=== PATIENT | male | born 2000 | race African-American/Black ===

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

== ENCOUNTER 2022-01-17 20:38 | Emergency (ER) | payer SELFPAY ==
[~2022-01-17] VITALS: Ht 180.3 cm; Wt 84.0 kg
[~2022-01-17 20:38] MED LIST changes: +HYDR-3164 PO; +ORPH100T PO
[2022-01-17 21:22] LABS: INFLUENZA A PATIENT NEGATIVE (NEGATIVE); INFLUENZA B PATIENT NEGATIVE (NEGATIVE)
[2022-01-17 22:19] VITALS: BP 135/79
[2022-01-17] MEDS ORDERED: PSEU30TA77 PO (22:25)
--- NOTE | 2022-01-17 22:26 | PHYS DOC ---
Past Medical History Past Medical History: No Pertinent History Past Surgical History: No Surgical History Smoking Status: Never Smoker Alcohol Use: None Drug Use: None General Adult EDM: Chief Complaint: FLU SYMPTOM HPI: HPI: 21-year-old -N[place]ian male with no significant past medical history, presents the ED with complaints of nasal congestion, cough, red eyes, sinus pressure, fatigue and lack of taste or smell for the past 2 days stating his sister tested positive for Covid and he lives with her. Pt states "I just can't breath, my nose is clogged up." Reports he smokes hookah weekly. No history of tobacco use or underlying lung disease. Is not vaccinated for Covid. Works at [employer] and is requesting a covid test. Pt asks for a medicine for his nasal congestion. Review of Systems: Review of Systems: Constitutional: Denies fever or chills. [] Eyes: Denies change in visual acuity or eye discharge HENT: Denies rhinorrhea or sore throat. [] Respiratory: Denies hemoptysis or shortness of breath. [] Cardiovascular: Denies chest pain or edema. [] GI: Denies nausea or vomiting Musculoskeletal: Denies back pain or joint pain. [] Integument: Denies rash or diaphoresis Neurologic: Denies headache, focal weakness or sensory changes. [] Endocrine: Denies polyuria or polydipsia. [] Lymphatic: Denies swollen glands. [] Psychiatric: Denies depression or anxiety. [] Heart Score: C/O Chest Pain: No Risk Factors: Risk Factors: DM, Current or recent (<one month) smoker, HTN, HLP, family history of CAD, obesity. Risk Scores: Score 0 - 3: 2.5% MACE over next 6 weeks - Discharge Home Score 4 - 6: 20.3% MACE over next 6 weeks - Admit for Clinical Observation Score 7 - 10: 72.7% MACE over next 6 weeks - Early Invasive Strategies Allergies: Allergies: Allergies Coded Allergies Type Severity Reaction Last Updated Verified No Known Drug Allergies 10/13/16 No Physical Exam: PE: Constitutional: Well developed, well nourished, no acute distress, non-toxic appearance. HENT: Normocephalic, atraumatic, no pharyngeal erythema or exudates, moist mucous membranes Eyes: EOMI, conjunctiva with mild injection, no discharge. Neck: Normal range of motion, supple, no nuchal rigidity or meningismus Cardiovascular: S1/2 present, regular rhythm Lungs & Thorax: Speaking in full sentences, bilateral equal chest rise, no tachypnea or increased work of breathing, mild nasal voice Abdomen: soft, no tenderness, Skin: Warm, dry, no erythema, no rash. [] Extremities: No tenderness, no cyanosis, no lower extremity edema Neurologic: Alert and oriented X 3, normal motor function, normal sensory function, no focal deficits noted. [] Psychologic: Affect normal, judgement normal, mood normal. [] Current Patient Data: Labs: Laboratory Tests Test 01/17/22 21:00 Influenza Type A Antigen Negative (NEGATIVE) Influenza Type B Antigen Negative (NEGATIVE) SARS-CoV-2 Antigen (Rapid) Negative (NEGATIVE) Vital Signs: Vital Signs Date Time Temp Pulse Resp B/P (MAP) Pulse Ox O2 Delivery O2 Flow Rate FiO2 01/17/22 21:27 68 18 141/70 (93) 99 Room Air 01/17/22 20:53 98.9 98.9 EKG: EKG: [] Radiology/Procedures: Radiology/Procedures: [] Course & Med Decision Making: Course & Med Decision Making Pertinent Labs and Imaging studies reviewed. (See chart for details) COVID-19 CRITERIA: The patient was evaluated during the global COVID-19 pandemic, and that diagnosis was suspected/considered upon their initial presentation. Their evaluation, treatment and testing was consistent with current guidelines for patients who present with complaints or symptoms that may be related to COVID-19. Concern for URI/acute sinusitis after recent COVID-19 exposure. Rapid Covid and influenza negative. Patient hemodynamically stable, speaking in full sentences, not requiring any supplemental oxygen. Was given quarantine instructions. Will prescribe Sudafed for no more than 3 days, patient warned of rebound congestion and inability to sleep with this medication. Will discharge home with strict ED return precautions were given for increased work of breathing, chest pain, shortness of breath or neurologic deficits. Encouraged urgent outpatient follow-up with PMD for reevaluation and routine care. Life- threatening processes were considered but are low suspicion at this time, given history, physical exam and ED workup. Pt was educated on all prescription medications and adverse effects. All patient's questions were answered and pt was stable at time of discharge. Life/limb-threatening differential includes but is not limited to, airway emergency or respiratory distress/ARDS or fatigue or head or neck swelling, toxidrome, sepsis/shock, angioedema, anaphylaxis, congestive heart failure, myocarditis, acute myocardial infarction, dysrhythmias, cardiomyopathy, venous thromboembolism, pulmonary emboli, acute necrotizing hemorrhagic encephalopathy ,cerebral venous thrombosis, meningitis, encephalitis or CVA. I have spoken with the patient and/or caregivers. I explained the patient's condition, diagnoses and treatment plan based on the information available to me at this time. I have answered the patient and/or caregiver's questions and addressed any concerns. The patient and/or caregivers have a good understanding of patient's diagnosis, condition and treatment plan as can be expected at this point. Vital signs have been stable. Patient's condition is stable and appropriate for discharge from the emergency department. Patient will pursue further outpatient evaluation with primary care physician or other designated or consulting physician as outlined in the discharge instructions. The patient and/or caregivers are agreeable to this plan of care and follow-up instructions have been explained in detail. The patient and/or caregivers have received these instructions in written form and have expressed an understanding of the discharge instructions. The patient and/or caregivers are aware that any significant change of condition or worsening of symptoms should prompt immediate return to this or the closest emergency department or call to 911. Shawna Disclaimer: Shawna Disclaimer: This electronic medical record was generated, in whole or in part, using a voice recognition dictation system. Departure Departure Impression: Primary Impression: Person under investigation for COVID-19 Additional Impression: Acute sinusitis Disposition: HOME / SELF CARE / HOMELESS Condition: STABLE Referrals: UNKNOWN PCP NAME (PCP) Follow-up with your primary care physician in 24 to 48 hours OR FOLLOW UP WITH FAMILY MEDICINE: [address] [place] [address] Patient Instructions: Sinusitis Additional Instructions: You have been tested for or diagnosed with COVID-19. It is an infection caused by a new type of coronavirus. COVID-19 will cause cold-like or mild flu symptoms in most. It can cause more severe symptoms like problems breathing in some. There is no treatment for COVID-19. The body will clear the infection over time. Self-care will help to ease discomfort. Steps to Take: Self-Care Rest as needed. Healthy habits may help you feel better. Steps include: Choose healthy foods including fruits and vegetables. Drink water throughout the day. Get plenty of sleep each night. If you smoke, try to quit. It may ease breathing. Avoid alcohol. Keep Others Healthy The virus can spread to others. Droplets are released every time you sneeze or cough. The droplets can get into the mouth, nose, or eyes of people near you and lead to infection. To lower the chances of spreading COVID-19 to others: Stay at home until your doctor has said it is safe to leave. If you tested positive this will mean staying isolated until both of the following are true: At least 7 days have passed since the start of illness. You are free of fever for at least 72 hours without the use of medicine. During this time: - Avoid public areas, events, or transportation. Do not return to work or school until your doctor has said it is safe to do so. - Call ahead if you need to go to a medical center. Let them know you may have COVID-19. It will help them guide you where to go. They may also ask you to wear a facemask when you come to the office. - If you call for emergency medical services, let them know you may have COVID- 19. While at home: - Try to avoid close contact with others. Stay about 6 feet away. - If possible, spend most of your time in a separate room from others. - Use a face mask if you will be in close contact with others such as sharing a room or vehicle. - Have someone wipe down common surfaces in the home. Use household recruiting specialist every day on areas like doorknobs, counters, or sinks. - Cough or sneeze into a tissue. Throw the tissue away right after use. If a tissue is not available, cough or sneeze into your elbow. - Wash your hands often. Wash them after sneezing or coughing. Use soap and water and wash for at least 20 seconds. Alcohol based hand cleaners can be used if soap and water is not available. - Do not prepare food for others. Avoid sharing personal items like forks, spoons, or toothbrushes. - Avoid close contact with pets while you are sick. There is no evidence of the virus passing to pets. This is a safety step until more is known about this virus. Isolation can be frustrating. Social interaction can help. Keep in touch with friends and family through phone and tech options. You can still interact with others in your home, just keep a safe distance of about 6 feet. Follow-up: Your doctors office will check in with you to see if there are any changes in your health. You may be asked to keep track of symptoms to share with them. They will also let you know when you are clear to be in public again. Problems to Look Out For: Contact your doctor if your recovery is not going as you expect. Get emergency care if you have problems such as: - Trouble breathing - Nonstop chest pain or pressure - Changes in awareness, confusion, or problems waking - Lips or face have bluish color - Worsening of symptoms If you think you have an emergency, call for emergency medical services right away. As taken from [facility] Scripts Pseudoephedrine Hcl (NEXAFED) 30 Mg Tablet 1 TAB PO QID for 3 Days, #12 TAB 0 Refills Prov: REJI ROSEN DO 01/17/22 REJI ROSEN DO Jan 17, 2022 22:26
--- NOTE | 2022-01-18 16:18 | NUR ---
IP: Informed pt of negative covid test. Pt verbalized understanding.
== END 2022-01-17 22:33 | disposition home or self-care (01) ==
LOC: ER 20:38
DX: J01.90 Acute sinusitis, unspecified (principal); Z20.822 Contact with and (suspected) exposure to COVID-19
CPT/HCPCS: 87428; 99283; C9803; U0003

== ENCOUNTER → 2022-04-15 | Emergency (ER) | payer OTHER ==
[~2022-04-15] VITALS: Ht 180.3 cm; Wt 86.0 kg
[~2022-04-15] MED LIST changes: +CETI10TA74 PO; +ERYT1OIN3 OU; +ERYTHROMYCIN 0.5% OPHTH OINTMENT 1GM TUBE. OU ONE; +PSEU30TA77 PO
--- NOTE | 2022-04-15 22:43 | PHYS DOC ---
Past Medical History Past Medical History: No Pertinent History Past Surgical History: No Surgical History Smoking Status: Never Smoker Alcohol Use: None Drug Use: None General Adult EDM: Chief Complaint: EYE PROBLEMS HPI: HPI: Patient is a 21-year-old male who presents to the emergency department complaining of bilateral eyes irritated for the past 4 days. Patient states he wakes up every morning with his eyes matted shut. Patient also complains of stuffy nose. Patient reports this is worse at night. Patient reports his last tetanus immunization was less than 5 years ago. Patient denies other physical complaints or physical concerns. Review of Systems: Review of Systems: 14 body systems of review of systems have been reviewed. See HPI for pertinent positives and negative responses, otherwise all other systems are negative, nonpertinent or noncontributory. Constitutional: Negative except as outlined in HPI above. Skin: Negative except as outlined in HPI above. Eyes: Negative except as outlined in HPI above. HENT: Negative except as outlined in HPI above. Respiratory: Negative except as outlined in HPI above. Cardiovascular: Negative except as outlined in HPI above. GI: Negative except as outlined in HPI above. : Negative except as outlined in HPI above. Musculoskeletal: Negative except as outlined in HPI above. Integument: Negative except as outlined in HPI above. Neurologic: Negative except as outlined in HPI above. Endocrine: Negative except as outlined in HPI above. Lymphatic: Negative except as outlined in HPI above. Psychiatric: Negative except as outlined in HPI above. Heart Score: C/O Chest Pain: No Risk Factors: Risk Factors: DM, Current or recent (<one month) smoker, HTN, HLP, family history of CAD, obesity. Risk Scores: Score 0 - 3: 2.5% MACE over next 6 weeks - Discharge Home Score 4 - 6: 20.3% MACE over next 6 weeks - Admit for Clinical Observation Score 7 - 10: 72.7% MACE over next 6 weeks - Early Invasive Strategies Allergies: Allergies: Allergies Coded Allergies Type Severity Reaction Last Updated Verified No Known Drug Allergies 10/13/16 No Physical Exam: PE: Constitutional: Well developed, well nourished, no acute distress, non-toxic appearance. 21-year-old male in no apparent distress. HENT: Normocephalic, atraumatic. Lateral TMs intact and within normal limits, no lymphadenopathy of the head or neck appreciated. Bilateral nasal turbinates boggy with scant clear drainage. There is no postnasal drip appreciated, no uvular edema, deviation, or erythema, no peritonsillar edema or swelling or exudative drainage or cobblestoning, there was no laryngeal edema, patient speaking in normal voice tones, no drooling, no trismus. Bilateral TMs intact and within normal limits. Eyes: Conjunctiva erythematous, scant drainage bilateral eyes, patient PERRLA, visual acuity OD 20/20, OS 20/20, OU 2020. Neck: Normal range of motion, no stridor. Cardiovascular: No cyanosis appreciated, distal cap refill less than 2 seconds. Lungs & Thorax: Patient is in no respiratory distress, no audible adventitious lung sounds appreciated. Abdomen: Nontender, no abnormalities noted. Skin: Warm, dry, no erythema, no rash. Back: No tenderness, no deformities. Extremities: No tenderness, no cyanosis, no clubbing, ROM intact, no edema. Neurologic: Alert and oriented X 3, normal motor function, normal sensory function, no focal deficits noted. Psychologic: Affect normal, judgement normal, mood normal. Current Patient Data: Vital Signs: Vital Signs Date Time Temp Pulse Resp B/P (MAP) Pulse Ox O2 Delivery O2 Flow Rate FiO2 04/15/22 20:25 97.9 84 18 154/73 (100) 95 Room Air 97.9 EKG: EKG: [] Radiology/Procedures: Radiology/Procedures: [] Course & Med Decision Making: Course & Med Decision Making Pertinent Labs and Imaging studies reviewed. (See chart for details) 21-year-old male, vital signs reviewed, presents emerged from concerning bilateral eye infection, physical examination is consistent with gingivitis, will start on Polytrim regimen, discussed findings with patient, medication use and side effects, follow-up with eye doctor for ongoing symptoms, we will also start on nightly Zyrtec for allergy symptoms. Strict follow-up with primary care soon, return to ER precaution concerns were reviewed, patient gave verbal understanding and is amenable to ED discharge planning. Discussed with the patient all findings and diagnostic testing as well as the need to follow-up with their primary care provider for further evaluation and treatment or return to the ED if any new or worsening symptoms. Strict return precautions were also discussed at length, the patient voiced understanding and agreement with the discharge planning. The patient was nontoxic in appearance, in no apparent distress, and hemodynamically stable at the time of disposition. Dragon Disclaimer: Dragon Disclaimer: This electronic medical record was generated, in whole or in part, using a voice recognition dictation system. Departure Departure Impression: Primary Impression: Conjunctivitis Qualified Codes: H10.33 - Unspecified acute conjunctivitis, bilateral Disposition: HOME / SELF CARE / HOMELESS Condition: GOOD Referrals: UNKNOWN PCP NAME (PCP) Maldonado BRIONES MD Patient Instructions: Conjunctivitis (Viral and Bacterial) Additional Instructions: You were seen today in the emergency department for a bilateral eye infection. I am starting you on a medication called erythromycin ointment for your eyes, place 1/2 inch to the inside of each lower eyelid 4-6 times a day for the next 5 to 7 days. I have also prescribed for you Zyrtec to take 1 tablet each night to help with your allergy symptoms. Please follow-up with your primary care physician for ongoing symptoms, I have attached a list of [facility] clinics and physicians for you to establish primary care with. Please follow-up with an eye doctor for ongoing symptoms. I have given the information for Dr. Briones, however you may choose any eye doctor of your choice. Thank you for visiting our Emergency Department. It was a pleasure taking care of you today in the emergency department and we appreciate you trusting us with your care. If any additional problems come up don't hesitate to return to visit us. Please follow up with your primary care provider so they can plan additional care if needed and know about the problem that you had. If symptoms worsen come back to the Emergency Department. Any concerning symptoms that start such as chest pain, shortness of air, weakness or numbness on one side of the body, running high fevers or any other concerning symptoms return to the ER. You may obtain [id number] NyQuil and use as directed for any nighttime cold-like signs or symptoms. [facility] [address] [place] [address] [facility] [address] [place] [address] [place] [address] [facility] [address] [place] [address] [facility] [address] [place] [address] [facility] [address] [place] [address] [address] [address] [place] [address] [facility] [address] [place] [address] [facility] [address] [place] [address] [facility] [address] [place] [address] Scripts Cetirizine Hcl (ZYRTEC) 10 Mg Tablet 1 TAB PO HS for Seasonal allergies, #30 TAB 0 Refills Prov: MALIK JIMENES APRN 04/15/22 Erythromycin Base (Erythromycin) 1 Gm Oint...g. 1 GM OU Q4-6HRS for eye infection, #[address] 1/2 inch ribbon to each lower eyelid 4-6 times a day for the next 7 days. Prov: MALIK JIMENES APRN 04/15/22 MALIK JIMENES APRN April 15, 2022 22:43
[2022-04-15 23:10] VITALS: BP 138/90
== END | disposition home or self-care (01) ==
LOC: ER 20:16
DX: H10.33 Unspecified acute conjunctivitis, bilateral (principal)
CPT/HCPCS: 99283